=== PATIENT | male | born 1995 | race Caucasian/White ===

== ENCOUNTER → 2021-08-08 | Outpatient (CLI) | payer OTHER ==
--- NOTE | 2021-08-08 12:47 | MR ---
EXAMINATION TYPE: MR shoulder RT wo con DATE OF EXAM: 08/08/2021 11:45 AM COMPARISON: NONE HISTORY: Rt shoulder pain x6 months - unable to raise arm over his head TECHNIQUE: Multiplanar multispin echo imaging of the right shoulder was performed. FINDINGS: Rotator cuff : Increased signal within the substance of the supraspinatus tendon compatible with intellectual property paralegal sury tendinopathy. No evidence for partial or complete tear. Remaining constituents of the rotator cuf f are intact. Bursa: No bursal effusion or thickening is seen. Musculature: There is no muscular tear, contusion, or atrophy. Acromioclavicular joint : There are mild degenerative changes of the acromioclavicular joint. There is no anterior or lateral acromial downsloping. Osseous structures : There are no fractures or regions of abnormal bone marrow signal intensity. Long biceps tendon : The biceps tendon is normally situated within the bicipital groove. No complete or partial biceps tendon tear is present. Glenohumeral Joint fluid : There is no glenohumeral joint effusion. Cartilage and Bone : No focal hyaline cartilage defects are noted. No Hill-Sachs, reverse Hill-Sachs, or bony Bankart lesions are seen. Labrum : Anterior superior glenoid labral tear. OTHER FINDINGS : none IMPRESSION: 1. Anterior superior glenoid labral tear. 2. Chronic tendinopathy supraspinatus tendon.
== END | disposition home or self-care (01) ==
LOC: RADMRIMAIN 10:05
PROVIDERS: ATTEND Physician Assistant
DX: M75.111 Incomplete rotator cuff tear or rupture of right shoulder, not specified as traumatic (principal); M67.813 Other specified disorders of tendon, right shoulder